=== PATIENT | female | born 1990 | race Caucasian/White ===

== ENCOUNTER 2019-11-03 13:07 | Emergency (ER) | payer MEDICAID ==
[~2019-11-03] VITALS: Ht 165.1 cm; Wt 104.8 kg
[~2019-11-03 13:07] MED LIST: ASPI-147; AZIT1PAC10 PO; CHOL2000 PO; HYDR50CA PO; IBUP-24 PO; LANS30CA37 PO; LORA10TA7 PO; METF500T PO; PROG100C11 PO; SERT100T PO; SPIR100T5 PO; ZOLP5TAB8 PO
[2019-11-03 13:20] VITALS: BP 156/94
== END 2019-11-03 16:32 | disposition home or self-care (01) ==
LOC: ER 13:07
DX: M25.561 Pain in right knee (principal); Z88.5 Allergy status to narcotic agent; Z88.8 Allergy status to other drugs, medicaments and biological substances; Z79.2 Long term (current) use of antibiotics; Z79.899 Other long term (current) drug therapy
CPT/HCPCS: 29505; 73564; 99283